=== PATIENT | male | born 1945 | race Caucasian/White ===

== ENCOUNTER 2024-06-02 11:48 | Inpatient (IN) | payer MEDICARE ==
[~2024-06-02] VITALS: Ht 172.7 cm; Wt 94.5 kg
[~2024-06-02 11:48] MED LIST: ALLO300T8 PO; DEXA6TAB PO; FAMO20TA8 PO; FLO0.4C PO; GABA600T13 PO; GLIM2TAB6 PO; LEVO50TA8 PO; LISI1TAB49 PO; PRAV40TA3 PO; ROPI0.2544 PO
[2024-06-02 13:28] LABS: ALBUMIN 2.7 G/DL (3.4-5.0); ANION GAP 10 (8-16); APTT 37 SECONDS (22-32); BLOOD UREA NITROGEN 29 MG/DL (7-18); BUN/CREATININE RATIO 18.1 (10.0-20.0); CHLORIDE 104 MMOL/L (99-107); GLUCOSE 210 MG/DL (70-104); INR 2.4 INR; POTASSIUM 4.4 MMOL/L (3.5-5.1); PROTHROMBIN TIME 24.1 SECONDS (9.0-12.0); SODIUM 142 MMOL/L (135-145); TOTAL CARBON DIOXIDE 27.9 MMOL/L (24-32); eCRCL 35 ML/MIN; eGFR 42 ML/MIN
[2024-06-02 13:34] LABS: BASOPHILS % (AUTO) 0.2 % (0-1); EOSINOPHILS # (AUTO) 0.1 X10'3 (0-0.9); EOSINOPHILS % (AUTO) 0.3 % (0-6); HEMATOCRIT 47.7 % (42.0-52.0); HEMOGLOBIN 15.4 g/dl (14.0-17.9); LYMPHOCYTES # (AUTO) 1.4 X10'3 (1.1-4.8); MEAN CORPUSCULAR HEMOGLOBIN 29.3 PG (27.0-31.0); MEAN CORPUSCULAR HGB CONC 32.3 g/dL (33.0-36.5); MEAN CORPUSCULAR VOLUME 90.8 FL (78-98); MEAN PLATELET VOLUME 8.8 FL (7.4-10.4); MONOCYTES # (AUTO) 1.4 X10'3 (0-0.9); MONOCYTES % (AUTO) 5.7 % (2-12); NEUTROPHILS # (AUTO) 21.1 X10'3 (1.8-7.7); NEUTROPHILS % (AUTO) 87.8 % (42-75); PLATELET COUNT 275 X10'3 (140-440); RED BLOOD COUNT 5.25 X10'6 (4.70-6.10); RED CELL DISTRIBUTION WIDTH 17.4 % (11.5-14.5)
[2024-06-02] MEDS: CefTRIAXone 2gm/D5W 50ml BAG 50 ML IV ONE (14:14)
[2024-06-02] MEDS: levoFLOXACIN-Levaquin 750MG/D5 150 ML IV ONE (14:14)
[2024-06-02 14:19] LABS: MAGNESIUM 1.7 MG/DL (1.5-2.4); PRO BRAIN NATRIURETIC PEPTIDE 8297 PG/ML (0-450)
[2024-06-02] MEDS: normal saline 1000ML IV soln IV ONE (15:16)
[2024-06-02] MEDS: phytonadione inj. 10 MG in normal saline 100ml IV soln 100 ML IV ONE (16:16)
[2024-06-02] MEDS: LIDOcaine 1% W/epiNEPHrine 1:100,000 20ml vial SQ ONE (16:58)
[2024-06-02] MEDS ORDERED: potassium Cl 20 mEq SR tablet PO PRN ×2 (17:55)
[2024-06-02] MEDS ORDERED: potassium Cl 40MEQ/1/2NS 520ml 520 ML IV PRN (17:55)
[2024-06-02] MEDS ORDERED: magnesium sulf-water 4G/100mL 100 ML IV PRN (17:55)
[2024-06-02] MEDS ORDERED: acetaminophen 325mg tablet PO PRN (17:55)
[2024-06-02] MEDS ORDERED: ondansetron/PF 4mg/2ml inj IV PRN (17:55)
[2024-06-02] MEDS ORDERED: HYDROcodone/acetaminophen 5mg/325mg tablet PO PRN (17:55)
[2024-06-02] MEDS ORDERED: magnesium Cl slow-release 64mg tablet PO PRN (17:55)
[2024-06-02] MEDS ORDERED: HYDROcodone/acetaminophen 10/325mg tab PO PRN (17:55)
[2024-06-02] MEDS ORDERED: magnesium sulf-water 2g/50mL 50 ML IV PRN (17:55)
[2024-06-02] MEDS ORDERED: azithromycin/NS 500mg/250ml 250 ML IV SCH (18:05)
[2024-06-02 18:57] LABS: ABG BASE EXCESS -1.7 mmol/L (-2.0-2.0); ABG HCO3 22.7 mmol/L (22.0-26.0); ABG OXYGEN SATURATION 97.2 % (94-97); ABG PCO2 (T) 36.8 mmHg (35.0-48.0); ABG PH (T) 7.406 (7.340-7.440); ABG PO2 (T) 92.3 mmHg (75.0-100.0); ALLEN'S TEST Modified; FCOHb 1.3 % (0.0-3.9); FHHb 2.8 % (0.0-5.0); FLOW 4 L/min; FMetHb 0.3 % (0.0-1.5); FO2Hb 95.6 % (94-97); MODE NASAL CANNULA; PATIENT TEMPERATURE 36.6; TOTAL HEMOGLOBIN 13.5 G/dl (14.0-17.9)
[2024-06-02 19:05] LABS: ANISOCYTOSIS 1+; PLATELET ESTIMATE NORMAL; TOTAL CELLS COUNTED 100
[2024-06-02 19:06] LABS: BURR CELLS 1+
[2024-06-02] MEDS ORDERED: DULO30CA52 PO (20:31)
[2024-06-02] MEDS ORDERED: WARF-55 PO (20:31)
[2024-06-02] MEDS ORDERED: EMPA10TA PO (20:31)
[2024-06-02] MEDS ORDERED: METF-438 PO (20:31)
[2024-06-02] MEDS: albuterol 2.5 MG/3 ML nebule NEB SCH (20:39)
[2024-06-02 20:41] VITALS: PULSE 80; RESP 18; O2SAT 93
[2024-06-02] MEDS: normal saline 1000ml 1,000 ML IV SCH (20:49)
[2024-06-02] MEDS: levoFLOXACIN-Levaquin 500mg/D5 100 ML IV SCH (20:49)
[2024-06-02] MEDS: methylPREDNISolone sod succ 125mg/2ml vial IV SCH (20:50)
[2024-06-02 20:55] VITALS: PULSE 75; RESP 18
[2024-06-02 22:35] VITALS: BP 104/65; PULSE 68; RESP 18; TEMP 97.3
[2024-06-03] VITALS (13 sets, daily range): BP systolic 104–134; BP diastolic 65–79; PULSE 58–72; RESP 12–20; TEMP 97.2–98.1; O2SAT 92–98
[2024-06-03] MEDS: acetaminophen 325mg tablet PO SCH
[2024-06-03 04:33] LABS: BASOPHILS % (AUTO) 0.1 % (0-1); EOSINOPHILS % (AUTO) 0.3 % (0-6); HEMOGLOBIN 12.9 g/dl (14.0-17.9); LYMPHOCYTES # (AUTO) 0.5 X10'3 (1.1-4.8); LYMPHOCYTES % (AUTO) 3.6 % (21-51); MEAN CORPUSCULAR HEMOGLOBIN 28.7 PG (27.0-31.0); MEAN CORPUSCULAR HGB CONC 31.4 g/dL (33.0-36.5); MEAN CORPUSCULAR VOLUME 91.4 FL (78-98); MEAN PLATELET VOLUME 8.7 FL (7.4-10.4); MONOCYTES # (AUTO) 0.4 X10'3 (0-0.9); MONOCYTES % (AUTO) 2.6 % (2-12); NEUTROPHILS # (AUTO) 14.4 X10'3 (1.8-7.7); NEUTROPHILS % (AUTO) 93.4 % (42-75); PLATELET COUNT 198 X10'3 (140-440); RED BLOOD COUNT 4.49 X10'6 (4.70-6.10); RED CELL DISTRIBUTION WIDTH 17.8 % (11.5-14.5); WHITE BLOOD COUNT 15.4 X10'3 (4.5-11.0)
[2024-06-03 04:44] LABS: BILIRUBIN,URINE NEGATIVE (Neg); CLARITY,URINE CLEAR (Clear); COLOR,URINE YELLOW (Yellow); GLUCOSE, URINE >=1000 mg/dl (Neg); KETONES,URINE TRACE mg/dl (Neg); LEUKOCYTE ESTERASE ,URINE NEGATIVE (Neg); NITRITES, URINE NEGATIVE (Neg); OCCULT BLOOD,URINE TRACE-INTACT (Neg); PROTEIN,URINE NEGATIVE (Neg); UA COLLECTION TYPE NON-SPECIFIED; UROBILINOGEN,URINE 0.2 E.U/dL (0.2-1.0)
[2024-06-03 04:49] LABS: ALANINE AMINOTRANSFERASE 16 U/L (12-78); ALBUMIN 2.2 G/DL (3.4-5.0); ALBUMIN/GLOBULIN RATIO 0.6 (1.1-1.5); ALKALINE PHOSPHATASE 53 IU/L (46-116); ANION GAP 6 (8-16); ASPARTATE AMINO TRANSFERASE 14 U/L (10-37); BILIRUBIN,TOTAL 0.7 MG/DL (0.1-1.0); BLOOD UREA NITROGEN 29 MG/DL (7-18); BUN/CREATININE RATIO 28.2 (10.0-20.0); CALCIUM 8.8 MG/DL (8.5-10.1); CHLORIDE 106 MMOL/L (99-107); CREATININE 1.03 MG/DL (0.60-1.10); GLUCOSE 148 MG/DL (70-104); POTASSIUM 4.7 MMOL/L (3.5-5.1); SODIUM 139 MMOL/L (135-145); TOTAL PROTEIN 5.8 G/DL (6.4-8.2); eCRCL 54 ML/MIN; eGFR 69 ML/MIN
[2024-06-03 04:55] LABS: BACTERIA,URINE NONE SEEN /HPF (Neg); MUCUS STRANDS NONE SEEN /LPF (Neg); RENAL CELLS, URINE FEW /HPF; SQUAMOUS EPITHELIAL CELL,UR NONE SEEN /LPF (FEW); WBC,URINE 0-4 /HPF (0-4)
[2024-06-03 05:00] LABS: HEMOGLOBIN A1C 5.7 % (4.5-6.2)
[2024-06-03] MEDS: docusate sod 100mg capsule PO SCH (08:54)
[2024-06-03] MEDS ORDERED: glucagon, human recombinant 1mg kit SUBCUT PRN (13:35)
[2024-06-03] MEDS ORDERED: DEXTROSE 15 GM of carb/4 tabs (each vial/BOTTLE has 4 tablets) PO PRN ×2 (13:35)
[2024-06-03] MEDS ORDERED: dextrose 50%-water 50ml dispensing syringe IV PRN ×2 (13:35)
[2024-06-03] MEDS: azithromycin/NS 500mg/250ml 250 ML IV SCH (18:11)
[2024-06-03] MEDS: pravastatin 40mg tablet PO SCH (18:26)
[2024-06-03] MEDS: methylPREDNISolone sod succ/PF 40mg inj. IV SCH (20:49)
[2024-06-03] MEDS: ROPINIRole 0.25mg tablet PO SCH (21:00)
[2024-06-03] MEDS: INSULIN LISPRO 100 UNIT/ML INSULN.PEN MULTI-DOSE SQ SCH (21:15)
[2024-06-04] VITALS (13 sets, daily range): BP systolic 120–138; BP diastolic 67–88; PULSE 52–70; RESP 16–20; TEMP 97.6–98.9; O2SAT 90–96
[2024-06-04 07:22] LABS: BASOPHILS % (AUTO) 0.1 % (0-1); EOSINOPHILS % (AUTO) 0 % (0-6); HEMATOCRIT 40.1 % (42.0-52.0); HEMOGLOBIN 12.8 g/dl (14.0-17.9); LYMPHOCYTES # (AUTO) 0.8 X10'3 (1.1-4.8); MEAN CORPUSCULAR HEMOGLOBIN 29.2 PG (27.0-31.0); MEAN CORPUSCULAR VOLUME 91.2 FL (78-98); MONOCYTES # (AUTO) 0.9 X10'3 (0-0.9); MONOCYTES % (AUTO) 5.1 % (2-12); NEUTROPHILS # (AUTO) 14.9 X10'3 (1.8-7.7); NEUTROPHILS % (AUTO) 89.8 % (42-75); PLATELET COUNT 227 X10'3 (140-440); WHITE BLOOD COUNT 16.7 X10'3 (4.5-11.0)
[2024-06-04 07:44] LABS: ALANINE AMINOTRANSFERASE 23 U/L (12-78); ALBUMIN 2.4 G/DL (3.4-5.0); ALBUMIN/GLOBULIN RATIO 0.6 (1.1-1.5); ALKALINE PHOSPHATASE 54 IU/L (46-116); ANION GAP 8 (8-16); ASPARTATE AMINO TRANSFERASE 17 U/L (10-37); BILIRUBIN,TOTAL 0.6 MG/DL (0.1-1.0); BLOOD UREA NITROGEN 27 MG/DL (7-18); BUN/CREATININE RATIO 25.5 (10.0-20.0); CALCIUM 9.2 MG/DL (8.5-10.1); CHLORIDE 107 MMOL/L (99-107); CREATININE 1.06 MG/DL (0.60-1.10); GLUCOSE 206 MG/DL (70-104); POTASSIUM 3.7 MMOL/L (3.5-5.1); SODIUM 141 MMOL/L (135-145); TOTAL PROTEIN 6.1 G/DL (6.4-8.2); eCRCL 53 ML/MIN; eGFR 67 ML/MIN
[2024-06-04] MEDS: tamsulosin 0.4mg capsule PO SCH (08:00)
[2024-06-04] MEDS: enoxaparin 100mg/ml syringe SUBCUT SCH (09:48)
[2024-06-04] MEDS: levoTHYROXINE 25mcg tablet PO SCH (09:48)
[2024-06-04 11:05] LABS: INR 1.1 INR; PROTHROMBIN TIME 11.3 SECONDS (9.0-12.0)
[2024-06-04] MEDS: methylPREDNISolone sod succ/PF 40mg inj. IV SCH (19:13)
[2024-06-05] VITALS (11 sets, daily range): BP systolic 129–137; BP diastolic 77–80; PULSE 49–60; RESP 18–27; TEMP 97.3–98.2; O2SAT 90–97
[2024-06-05 05:38] LABS: BASOPHILS % (AUTO) 0.1 % (0-1); EOSINOPHILS % (AUTO) 0.1 % (0-6); HEMATOCRIT 39.2 % (42.0-52.0); HEMOGLOBIN 12.5 g/dl (14.0-17.9); LYMPHOCYTES # (AUTO) 1.3 X10'3 (1.1-4.8); LYMPHOCYTES % (AUTO) 8.6 % (21-51); MEAN CORPUSCULAR HEMOGLOBIN 28.8 PG (27.0-31.0); MEAN CORPUSCULAR HGB CONC 31.8 g/dL (33.0-36.5); MEAN CORPUSCULAR VOLUME 90.3 FL (78-98); MEAN PLATELET VOLUME 8.7 FL (7.4-10.4); MONOCYTES # (AUTO) 0.7 X10'3 (0-0.9); NEUTROPHILS # (AUTO) 12.6 X10'3 (1.8-7.7); NEUTROPHILS % (AUTO) 86.2 % (42-75); PLATELET COUNT 233 X10'3 (140-440); RED BLOOD COUNT 4.34 X10'6 (4.70-6.10); RED CELL DISTRIBUTION WIDTH 17.4 % (11.5-14.5); WHITE BLOOD COUNT 14.7 X10'3 (4.5-11.0)
[2024-06-05 05:55] LABS: ALANINE AMINOTRANSFERASE 41 U/L (12-78); ALBUMIN 2.4 G/DL (3.4-5.0); ALBUMIN/GLOBULIN RATIO 0.7 (1.1-1.5); ALKALINE PHOSPHATASE 66 IU/L (46-116); ANION GAP 7 (8-16); ASPARTATE AMINO TRANSFERASE 30 U/L (10-37); BILIRUBIN,TOTAL 0.7 MG/DL (0.1-1.0); BLOOD UREA NITROGEN 25 MG/DL (7-18); BUN/CREATININE RATIO 24.5 (10.0-20.0); CHLORIDE 107 MMOL/L (99-107); CREATININE 1.02 MG/DL (0.60-1.10); GLUCOSE 154 MG/DL (70-104); POTASSIUM 3.8 MMOL/L (3.5-5.1); SODIUM 142 MMOL/L (135-145); TOTAL CARBON DIOXIDE 28.5 MMOL/L (24-32); TOTAL PROTEIN 5.9 G/DL (6.4-8.2); eCRCL 55 ML/MIN; eGFR 70 ML/MIN
[2024-06-05 10:04] LABS: THYROID STIMULATING HORMONE 1.83 ulU/ml (0.34-4.50)
[2024-06-05] MEDS ORDERED: LIDOcaine 1% (10mg/ml) 2ml vial ONE (14:34)
[2024-06-05] MEDS ORDERED: nitroGLYCERIN 500mcg/5mL D5W 5 ML IV ONE ×2 (14:35→16:21)
[2024-06-05] MEDS ORDERED: iohexol 350MG/ML 100ml bottle IV ONE (14:35)
[2024-06-05] MEDS ORDERED: verapamil 2.5 mg/ml inj IV ONE (14:35)
[2024-06-05] MEDS ORDERED: iohexol 350 MG/ML 50ML vial IV ONE (14:35)
[2024-06-05] MEDS ORDERED: heparin 1,000unit/ml 10ml vial 10 ML ONE (14:35)
[2024-06-05] MEDS ORDERED: midazolam 1 mg/ML 2ml injection ONE (15:24)
[2024-06-05] MEDS ORDERED: fentaNYL/PF 50MCG/1 ML 2ML syringe ONE (15:25)
[2024-06-05] MEDS ORDERED: atropine 0.1mg/ml 10ml syringe ONE (16:01)
[2024-06-05] MEDS: normal saline 1000ml 1,000 ML IV ONE (17:40)
[2024-06-05] MEDS: ROSUVASTATIN CALCIUM 5 MG TABLET PO SCH (21:08)
[2024-06-05] MEDS: duloxetine 30mg CAPSULE.DR PO SCH (21:08)
[2024-06-05] MEDS: gabapentin 300mg capsule PO SCH (21:08)
[2024-06-06 02:00] VITALS: BP 136/83; PULSE 77; RESP 18; TEMP 96.2; O2SAT 93
[2024-06-06 06:00] VITALS: BP 148/82; PULSE 95; RESP 18; TEMP 98.5; O2SAT 98
[2024-06-06 06:13] LABS: BASOPHILS % (AUTO) 0 % (0-1); EOSINOPHILS % (AUTO) 0.2 % (0-6); HEMATOCRIT 40.7 % (42.0-52.0); HEMOGLOBIN 13.1 g/dl (14.0-17.9); LYMPHOCYTES # (AUTO) 0.9 X10'3 (1.1-4.8); LYMPHOCYTES % (AUTO) 8.2 % (21-51); MEAN CORPUSCULAR HEMOGLOBIN 29.4 PG (27.0-31.0); MEAN CORPUSCULAR HGB CONC 32.2 g/dL (33.0-36.5); MEAN CORPUSCULAR VOLUME 91.3 FL (78-98); MONOCYTES # (AUTO) 0.6 X10'3 (0-0.9); MONOCYTES % (AUTO) 5.2 % (2-12); NEUTROPHILS # (AUTO) 9.6 X10'3 (1.8-7.7); NEUTROPHILS % (AUTO) 86.4 % (42-75); PLATELET COUNT 229 X10'3 (140-440); RED BLOOD COUNT 4.46 X10'6 (4.70-6.10); RED CELL DISTRIBUTION WIDTH 17.6 % (11.5-14.5); WHITE BLOOD COUNT 11.1 X10'3 (4.5-11.0)
[2024-06-06 06:37] LABS: ALANINE AMINOTRANSFERASE 85 U/L (12-78); ALBUMIN 2.4 G/DL (3.4-5.0); ALBUMIN/GLOBULIN RATIO 0.7 (1.1-1.5); ALKALINE PHOSPHATASE 50 IU/L (46-116); ANION GAP 2 (8-16); ASPARTATE AMINO TRANSFERASE 66 U/L (10-37); BILIRUBIN,TOTAL 0.7 MG/DL (0.1-1.0); BLOOD UREA NITROGEN 22 MG/DL (7-18); BUN/CREATININE RATIO 22.7 (10.0-20.0); CALCIUM 8.9 MG/DL (8.5-10.1); CHLORIDE 109 MMOL/L (99-107); CREATININE 0.97 MG/DL (0.60-1.10); GLUCOSE 189 MG/DL (70-104); POTASSIUM 4.4 MMOL/L (3.5-5.1); PRO BRAIN NATRIURETIC PEPTIDE 9003 PG/ML (0-450); SODIUM 138 MMOL/L (135-145); TOTAL PROTEIN 5.7 G/DL (6.4-8.2); eCRCL 58 ML/MIN; eGFR 74 ML/MIN
[2024-06-06 06:49] LABS: ANISOCYTOSIS 1+; LARGE PLATELETS FEW; PLATELET ESTIMATE NORMAL; TOTAL CELLS COUNTED 100
[2024-06-06 07:22] LABS: INR 1.1 INR; PROTHROMBIN TIME 11.5 SECONDS (9.0-12.0)
[2024-06-06 07:47] VITALS: PULSE 52; RESP 18; O2SAT 94
[2024-06-06 07:56] VITALS: PULSE 44; RESP 18
[2024-06-06] MEDS: EMPAGLIFLOZIN 10 MG TABLET PO SCH (08:38)
[2024-06-06 08:39] VITALS: BP_SYST 148
[2024-06-06] MEDS: aspirin 81mg, enteric-coated 1 TAB TABLET.DR PO SCH (08:39)
[2024-06-06] MEDS: allopurinol 300 MG tablet PO SCH (08:39)
[2024-06-06] MEDS: lisinopril 10 MG tablet PO SCH (08:39)
[2024-06-06] MEDS: HYDROchlorothiazide 12.5mg capsule PO SCH (08:40)
[2024-06-06] MEDS ORDERED: ASPI-1071 PO (10:46)
[2024-06-06] MEDS ORDERED: PRED10TA23 PO (10:46)
[2024-06-06] MEDS ORDERED: LEVO-65 PO (10:46)
[2024-06-06] MEDS ORDERED: ROSU40TA71 PO (10:46)
[2024-06-06] MEDS ORDERED: warfarin 5mg tablet PO SCH (21:00)
== END 2024-06-06 12:50 | disposition home health service (06) | DRG 871 ==
LOC: ER 11:49 → ED HOLD 18:01 → PCU 3S 21:50
PROVIDERS: ADMIT Internal Medicine; ATTEND Internal Medicine
PROC: 02HV33Z Insertion of Infusion Device into Superior Vena Cava, Percutaneous Approach (ICD-10-PCS; principal; 2024-06-02)
PROC: B548ZZA Ultrasonography of Superior Vena Cava, Guidance (ICD-10-PCS; 2024-06-02)
PROC: 4A023N8 Measurement of Cardiac Sampling and Pressure, Bilateral, Percutaneous Approach (ICD-10-PCS; 2024-06-05)
PROC: B2111ZZ Fluoroscopy of Multiple Coronary Arteries using Low Osmolar Contrast (ICD-10-PCS; 2024-06-05)
PROC: B2151ZZ Fluoroscopy of Left Heart using Low Osmolar Contrast (ICD-10-PCS; 2024-06-05)
DX: A41.9 Sepsis, unspecified organism (principal); J18.9 Pneumonia, unspecified organism; J96.01 Acute respiratory failure with hypoxia; N17.0 Acute kidney failure with tubular necrosis; I69.351 Hemiplegia and hemiparesis following cerebral infarction affecting right dominant side; I48.20 Chronic atrial fibrillation, unspecified; I25.10 Atherosclerotic heart disease of native coronary artery without angina pectoris; Z20.822 Contact with and (suspected) exposure to COVID-19; E78.00 Pure hypercholesterolemia, unspecified; E11.42 Type 2 diabetes mellitus with diabetic polyneuropathy; E11.22 Type 2 diabetes mellitus with diabetic chronic kidney disease; N18.30 Chronic kidney disease, stage 3 unspecified; I12.9 Hypertensive chronic kidney disease with stage 1 through stage 4 chronic kidney disease, or unspecified chronic kidney disease; E03.9 Hypothyroidism, unspecified; K21.9 Gastro-esophageal reflux disease without esophagitis; Z96.651 Presence of right artificial knee joint; Z79.84 Long term (current) use of oral hypoglycemic drugs; Z86.16 Personal history of COVID-19; Z79.899 Other long term (current) drug therapy; Z79.01 Long term (current) use of anticoagulants; Z82.49 Family history of ischemic heart disease and other diseases of the circulatory system; Z87.01 Personal history of pneumonia (recurrent); Z85.118 Personal history of other malignant neoplasm of bronchus and lung
CPT/HCPCS: 36415; 36600; 71045; 71250; 76937; 80048; 80053; 81001; 82803; 82948; 83036; 83605; 83735; 83880; 84145; 84443; 85007; 85018; 85025; 85610; 85730; 86885; 86900; 86901; 87040; 87081; 87811; 93005; 93460; 94640; 94760; 96365; 96367; 97116; 97161; 97530; 99152; 99153; 99291; A4615; A6212; A6250; A6258; A6449; A6590; C1725; C1751; C1894; G0378; J0456; J0461; J0696; J1644; J1650; J1815; J1956; J2250; J2919; J3010; J3430; J3490; J7030; J7040; Q9967

== ENCOUNTER 2024-08-04 20:48 | Emergency (ER) | payer MEDICARE ==
[~2024-08-04] VITALS: Ht 172.7 cm; Wt 88.7 kg
[~2024-08-04 20:48] MED LIST changes: +ASPI-1071 PO; -DEXA6TAB PO; +DULO30CA52 PO; +EMPA10TA PO; -FAMO20TA8 PO; -GLIM2TAB6 PO; +LEVO-65 PO; -PRAV40TA3 PO; +PRED10TA23 PO; +ROSU40TA71 PO; +WARF-55 PO
[2024-08-04 20:50] VITALS: TEMP 98.2
[2024-08-04] MEDS: HYDROcodone/acetaminophen 10/325mg tab PO ONE (22:49)
[2024-08-04 23:53] VITALS: BP 115/71; PULSE 65; RESP 18; O2SAT 96
== END 2024-08-04 23:54 | disposition home or self-care (01) ==
LOC: ER 20:49
DX: S70.01XA Contusion of right hip, initial encounter (principal); M25.551 Pain in right hip; E11.42 Type 2 diabetes mellitus with diabetic polyneuropathy; I10 Essential (primary) hypertension; E03.9 Hypothyroidism, unspecified; Z79.899 Other long term (current) drug therapy; Z79.82 Long term (current) use of aspirin; Z79.2 Long term (current) use of antibiotics; Z79.01 Long term (current) use of anticoagulants; W19.XXXA Unspecified fall, initial encounter; Y93.89 Activity, other specified; Y92.89 Other specified places as the place of occurrence of the external cause; Y99.8 Other external cause status
CPT/HCPCS: 72192; 99284

== ENCOUNTER 2025-03-04 11:06 | Emergency (ER) | payer MEDICARE ==
[~2025-03-04] VITALS: Ht 172.7 cm; Wt 82.8 kg
[~2025-03-04 11:06] MED LIST changes: -DULO30CA52 PO; +FAMO20TA8 PO; -FLO0.4C PO; +GABA-1405 PO; +GABA300T26 PO; -GABA600T13 PO; +GLIM2TAB6 PO; +METF-436 PO; -PRED10TA23 PO; -ROPI0.2544 PO; -ROSU40TA71 PO; +ROSU40TA89 PO
[2025-03-04 11:13] VITALS: BP 122/65; PULSE 71; RESP 15; TEMP 98; O2SAT 99
--- NOTE | 2025-03-04 13:24 | Physician Documentation ---
History of Present Illness ~ Chief Complaint: Abscess Stated Complaint: CYST Time Seen by MD: 11:26 Primary Medical Doctor: NONE HPI Patient is seen today with complaints of pain of his sacrum in his concerned about a pilonidal cyst. Patient states he had one about 50 years ago. Patient denies any fever or chills. Patient states he has been sitting an awfully lot lately. He has no other concern or complaint at this time. Tetanus Within 5 Years: Yes Medication Reconciliation Allergies: Coded Allergies: No Known Allergies (Unverified , 10/07/22) Scheduled Allopurinol (Allopurinol), 1 TAB PO DAILY, (Reported) Aspirin (Ecotrin*), 1 TAB PO DAILY, (Reported) Empagliflozin (Jardiance), 10 MG PO DAILY, (Reported) Famotidine (Famotidine), 1 TAB PO Q12H, (Reported) Gabapentin (Gabapentin), 1 TAB PO BID, (Reported) Gabapentin Enacarbil (Horizant), 1 TAB PO AT NOON, (Reported) Glimepiride (Glimepiride), 1 TAB PO BID, (Reported) Levofloxacin (Levofloxacin), 1 TAB PO DAILY Levothyroxine Sodium (Levothyroxine Sodium), 1 TAB PO DAILY, (Reported) Lisinopril/Hydrochlorothiazide (Lisinopril-Hctz 10-12.5 mg Tab), 1 TAB PO DAILY, (Reported) Metformin Hcl (Metformin Hcl), 1,000 MG PO Q12H, (Reported) Rosuvastatin Calcium (Rosuvastatin Calcium), 1 TAB PO DAILY, (Reported) Warfarin Sodium (Warfarin Sodium), 5 MG PO DAILY, (Reported) Past Medical History Past Medical History: Peripheral Neuropathy, Hypertension, Diabetes, Hypothyroidism Past Surgical History: noncontributory Patient History: FH: heart disease FATHER FH: lung cancer MOTHER Alcohol Use: Occasionally Drug Use: none Lives with: S/O Lives In: Home Review of Systems Constitutional: Denies: chills, fever, weakness Eyes: Denies: pain, blurred vision ENT: Denies: ear pain, nose pain, throat pain, mouth pain Respiratory: Denies: cough, shortness of breath Cardiovascular: Denies: chest pain, palpitations Gastrointestinal: Denies: abdominal pain, nausea, vomiting Genitourinary: Denies: burning, dysuria Male Genitalia: Denies: penile discharge, testicular pain Neurological: Denies: headache, dizziness Musculoskeletal: Denies: pain, swelling Integumentary: Denies: rash, lesions Allergic/Immunologic: Denies: hives, itching Hematologic/Lymphatic: Denies: no symptoms reported Psychiatric: Denies: depression, anxiety Physical Exam Vital Signs: Temperature: 98.0, Heart Rate: 71, Respiratory Rate: 15, BP: 122/65, Pulse Oximetry: 99, Weight: 82.800 Oxygen Flow Rate: 0 Physical Exam General: Awake and Alert, no acute distress. HEENT: Conjunctiva pink, Sclera clear, Mucus Membranes moist. Neck: Supple without masses and tenderness. Resp: Unlabored. Lungs clear to auscultation bilaterally. Heart: Regular Rate and rhythm, normal S1 and S2 without murmur, rub or gallop. Musculoskeletal: Patient on exam has no sign of pilonidal cyst but does have tenderness to palpation of the sacrum at the apex of the gluteal cleft. I do not appreciate any skin breakdown. I do not appreciate any induration or sign of infection there is no purulence or drainage or open wound. Extremities: No cyanosis,clubbing or edema. Skin: Warm and Dry. Progress Results/Orders Results/Orders Vital Signs 03/04/25 11:13 Temp 98.0 Pulse 71 Resp 15 B/P (MAP) 122/65 Pulse Ox 99 O2 Flow Rate 0 Medical Decision Making Findings Patient is seen today with complaints of pain of his sacrum in his concerned about a pilonidal cyst. Patient states he had one about 50 years ago. Patient denies any fever or chills. Patient states he has been sitting an awfully lot lately. He has no other concern or complaint at this time. Patient advised to get a donut to sit on and to decrease the time extended that he is sitting. Patient voiced understanding. Patient will get up every 30-60 minutes to ambulate. Patient will follow up with primary care in 2-5 days if no better as needed sooner. Return to ED with any worsening, concerning or changing symptoms. Shared decision-making utilized with the patient today. Departure Disposition: HOME / SELF CARE / HOMELESS Impression: Primary Impression: Sacral pain Condition: Improved Additional Instructions: Patient advised to get a donut to sit on and to decrease the time extended that he is sitting. Patient voiced understanding. Patient will get up every 30-60 minutes to ambulate. Patient will follow up with primary care in 2-5 days if no better as needed sooner. Return to ED with any worsening, concerning or changing symptoms. Shared decision-making utilized with the patient today. Referrals: NO PRIMARY CARE PROVIDER (PCP) Signature Scribe Signature: No scribe Attestation: No scribe EMIGDIO CAMPBELL PAC March 04, 2025 13:24
== END 2025-03-04 13:45 | disposition home or self-care (01) ==
LOC: ER 11:07
DX: M53.3 Sacrococcygeal disorders, not elsewhere classified (principal); E03.9 Hypothyroidism, unspecified; E11.42 Type 2 diabetes mellitus with diabetic polyneuropathy; I10 Essential (primary) hypertension
CPT/HCPCS: 99281

== ENCOUNTER 2025-03-18 06:13 | Day surgery (SDC) | payer MEDICARE ==
[2025-03-14 13:10] LABS: BASOPHILS # (AUTO) 0.1 X10'3 (0-0.2); BASOPHILS % (AUTO) 0.6 % (0-1); EOSINOPHILS # (AUTO) 0.5 X10'3 (0-0.9); EOSINOPHILS % (AUTO) 5.6 % (0-6); LYMPHOCYTES # (AUTO) 1.3 X10'3 (1.1-4.8); LYMPHOCYTES % (AUTO) 15.5 % (21-51); MEAN CORPUSCULAR HEMOGLOBIN 25.8 PG (27.0-31.0); MEAN CORPUSCULAR HGB CONC 31.6 g/dL (33.0-36.5); MEAN CORPUSCULAR VOLUME 81.7 FL (78-98); MEAN PLATELET VOLUME 8.6 FL (7.4-10.4); MONOCYTES # (AUTO) 0.7 X10'3 (0-0.9); NEUTROPHILS # (AUTO) 5.9 X10'3 (1.8-7.7); NEUTROPHILS % (AUTO) 70.3 % (42-75); PRE OP HEMATOCRIT 43.5 % (42.0-52.0); PRE OP HEMOGLOBIN 13.7 g/dL (14.0-17.9); PRE OP PLATELET COUNT 209 X10'3 (140-440); PRE OP WHITE BLOOD COUNT 8.4 10'3 (4.8-10.8); RED BLOOD COUNT 5.32 X10'6 (4.70-6.10); RED CELL DISTRIBUTION WIDTH 20.2 % (11.5-14.5)
[2025-03-14 13:17] LABS: ALBUMIN 3.3 G/DL (3.4-5.0); ALBUMIN/GLOBULIN RATIO 0.9 (1.1-1.5); ALKALINE PHOSPHATASE 59 IU/L (46-116); BLOOD UREA NITROGEN 31 MG/DL (7-18); BUN/CREATININE RATIO 27.2 (10.0-20.0); CALCIUM 9.3 MG/DL (8.5-10.1); CHLORIDE 108 MMOL/L (99-107); CREATININE 1.14 MG/DL (0.60-1.10); PRE OP ALT 14 U/L (30-65); PRE OP ANION GAP 7 (8-16); PRE OP AST 12 U/L (10-37); PRE OP BILIRUB, TOTAL 0.4 MG/DL (0.0-1.0); PRE OP GLUCOSE 150 MG/DL (70-104); PRE OP POTASSIUM 4.3 MMOL/L (3.4-5.1); PRE OP SODIUM 145 MMOL/L (135-145); TOTAL CARBON DIOXIDE 29.6 MMOL/L (24-32); TOTAL PROTEIN 6.8 G/DL (6.4-8.2); eGFR 62 ML/MIN
[2025-03-14 13:31] LABS: ANISOCYTOSIS 3+; PLATELET ESTIMATE NORMAL
[~2025-03-18] VITALS: Ht 172.7 cm; Wt 65.3 kg
[2025-03-18] VITALS (8 sets, daily range): BP systolic 86–118; BP diastolic 53–86; PULSE 52–68; RESP 12–20; TEMP 97.8; O2SAT 95–98
[2025-03-18] MEDS: ceFAZolin 2gm in dextrose, iso 50 ML IV ONE (05:30)
[~2025-03-18 06:13] MED LIST changes: -ASPI-1071 PO; +CINNAMON; -GABA-1405 PO; +GABA300C PO; -GABA300T26 PO; -LEVO-65 PO; +MAGNESIUM; +MULT-1085 PO; +VIT B12; +VIT C
[2025-03-18] MEDS: ringers solution, lacted 1,000 ML IV SCH (06:43)
[2025-03-18] MEDS: famotidine 20mg tablet PO ONE (06:44)
[2025-03-18] MEDS ORDERED: LIDOcaine 2% (20mg/ml) 5ml vial ONE (06:49)
[2025-03-18] MEDS ORDERED: BUPIVAcaine/PF 2.5mg/ml (0.25%) 10ml vial ONE (06:50)
[2025-03-18] MEDS ORDERED: fentaNYL/PF 50MCG/1 ML 2ML syringe ONE (08:43)
[2025-03-18] MEDS ORDERED: midazolam 1 mg/ML 2ml injection ONE (08:43)
[2025-03-18] MEDS ORDERED: glycopyrrolate 0.2mg/ml inj ONE (08:54)
--- NOTE | 2025-03-18 13:12 | OPERATIVE REPORT ---
Operative Report Providers to ~ Date of Procedure: March 18, 2025 Pre-Operative Diagnosis: Carpal tunnel syndrome left wrist Post-Operative Diagnosis SAME as PRE-Op Procedure Performed Left wrist open carpal tunnel release Surgeon: Miguel Angel Encinas MD Biology Laboratory Assistant None Anesthesiologist: Mike Acosta Type of Anesthesia: Other Findings: Estimated Blood Loss: None Specimen Removed: None Description of Procedure: The patient is a 79-year-old man with left carpal tunnel syndrome refractory to nonsurgical treatment. Surgery is indicated to relieve symptoms. Risks and benefits were discussed with the patient regarding this procedure. Some of the risks of this type of procedure include but are not limited to infection, bleeding, nerve damage, and failure to improve, he agreed to proceed, He was brought to the operating room where the left arm was prepped and draped in usual manner. Proper time-out procedure was observed. Local anesthetic consisting of lidocaine and Marcaine was infiltrated in the area of the surgical incision. A 3 cm incision was made in the palm ulnar to the wrist crease in line with the radial side of the ring finger. Dissection was taken down to the wound the deeper tissues to the transverse carpal ligament which was then opened in line with the skin incision. The median nerve was identified and protected while the ligament was divided distally to the transverse arch and then proximally to the wrist crease followed by division of the forearm fascia. The incision was irrigated and closed with nylon suture. Sterile dressing was then applied. The patient was taken to the recovery room in stable condition and tolerated the procedure well. MIGUEL ANGEL ENCINAS Jr., MD March 18, 2025 13:12
== END 2025-03-18 11:04 | disposition home or self-care (01) ==
LOC: PAS 06:13
PROVIDERS: ATTEND Orthopaedic Surgery Hand Surgery
DX: G56.02 Carpal tunnel syndrome, left upper limb (principal); I49.5 Sick sinus syndrome; I48.91 Unspecified atrial fibrillation; J44.9 Chronic obstructive pulmonary disease, unspecified; M10.9 Gout, unspecified; I69.351 Hemiplegia and hemiparesis following cerebral infarction affecting right dominant side; M17.12 Unilateral primary osteoarthritis, left knee; F41.9 Anxiety disorder, unspecified; Z79.899 Other long term (current) drug therapy; Z98.890 Other specified postprocedural states; Z96.652 Presence of left artificial knee joint
CPT/HCPCS: 36415; 64721; 80053; 82948; 85025; A4215; A6449; J2003; J2250; J3010; J3490; J7030; J7120; Z7506; Z7512; Z7610; 85008